=== PATIENT | female | born 1975 | race Hispanic/Latino ===

== ENCOUNTER 2021-05-29 12:54 | Emergency (ER) | payer MEDICARE ==
[~2021-05-29] VITALS: Ht 160 cm; Wt 117.0 kg
== END 2021-05-29 13:37 | disposition home or self-care (01) ==
LOC: ER 13:29
DX: S39.011A Strain of muscle, fascia and tendon of abdomen, initial encounter (principal); E78.5 Hyperlipidemia, unspecified; D64.9 Anemia, unspecified; Z86.718 Personal history of other venous thrombosis and embolism
CPT/HCPCS: 99282